=== PATIENT | male | born 2000 | race Caucasian/White ===

== ENCOUNTER 2022-09-09 16:13 | Outpatient (OUT) | payer BC, SELFPAY ==
--- NOTE | 2022-09-09 16:20 | XR_ITS ---
The [address] [address] Patient Name: ROSALES MARIN MRN: [id number] date: 2000 Sex: M Assigned Patient Location: RAD Current Patient Location: [facility] Accession/Order Number: [id number] Exam Date: 09/09/2022 16:21 Report Date: 09/10/2022 06:58 At the request of: RADHA PETERSON Procedure: XR foot LT min 3V PROCEDURE: XR foot LT min 3V COMPARISON: None. HISTORY: Pain in Left Foot [id number] FINDINGS: BONES:r 2.4 mm bone fragment identified along the medial first metatarsal head with adjacent lucency, a small avulsion fracture is suspected. No dislocation SOFT TISSUES:Associated soft tissue swelling medial first metatarsal head EFFUSION:None visible. OTHER: Negative. IMPRESSION: Suspected tiny avulsion fracture medial head of the first metatarsal Electronically authenticated by: BENJA WALLER Date: 09/10/2022 06:58
== END 2022-09-09 16:14 ==
LOC: RAD 16:15
PROVIDERS: PCP Family Medicine; Visit Provider Family Medicine
DX: M79.672 Pain in left foot (principal)
CPT/HCPCS: 73630